=== PATIENT | male | born 1965 | race Caucasian/White ===

== ENCOUNTER 2018-01-15 05:56 | Emergency (ER) | payer OTHER ==
[~2018-01-15] VITALS: Ht 180.3 cm; Wt 89.8 kg
[2018-01-15] MEDS ORDERED: DYAZIDE 37.5-251 EA (06:12)
[2018-01-15] MEDS ORDERED: TYLENOL WITH C1 EACH PO (06:12)
[2018-01-15] MEDS ORDERED: DECADRON4 MG (06:13)
[2018-01-15] MEDS ORDERED: AUGMENTIN 875-1 EACH PO (06:44)
== END 2018-01-15 07:23 | disposition home or self-care (01) ==
LOC: ED 05:56
DX: J95.89 Other postprocedural complications and disorders of respiratory system, not elsewhere classified (principal); T81.82XA Emphysema (subcutaneous) resulting from a procedure, initial encounter; I10 Essential (primary) hypertension; Z88.1 Allergy status to other antibiotic agents; Z91.013 Allergy to seafood; Z91.018 Allergy to other foods; Z79.899 Other long term (current) drug therapy
CPT/HCPCS: 99283

== ENCOUNTER 2023-03-29 11:46 | Day surgery (SDC) | payer OTHER ==
[~2023-03-29] VITALS: Ht 175.3 cm; Wt 84.1 kg
[~2023-03-29 11:46] MED LIST: ADVIL PM CAPLE1 EACH PO; AUGMENTIN 875-1 EACH PO; DECADRON4 MG; DYAZIDE 37.5-251 EA; FLUOXETINE HCL40 MG PO; PROVENTIL HFA6.7 GM INH; TRAZODONE HCL50 MG PO; TYLENOL WITH C1 EACH PO
[2023-03-29 12:19] VITALS: BP 148/87
[2023-03-29] MEDS ORDERED: ADVAIR 250-501 EACH INH (12:22)
--- NOTE | 2023-03-29 13:38 | NUR ---
03/29/23 1338 Katya Ji 1335-PT TO PACU IN LL POSITION. EYES CLOSED. RESPONDS TO VERBAL AND TACTILE STIMULI. DENIES PAIN AND FALLS QUICKLY BACK TO SLEEP. DOES NOT OPEN EYES. BREATHING EASY AND UNLABORED. SPO2 >95% ON 2 LO2 VIA NC.
[2023-03-29 15:30] VITALS: BP 138/85
--- NOTE | 2023-03-31 09:47 | OR ---
[facility] [address], [place] [address] Signed DATE OF OPERATION: 03/29/2023 SURGEON: Chandler Luong MD PREOPERATIVE DIAGNOSIS: Colon screening. POSTOPERATIVE DIAGNOSES: 1. Mild sigmoid diverticulosis. 2. Small polyp rectosigmoid (excised). PROCEDURE: Total colonoscopy to cecum with cold morcellation polypectomy x1. ANESTHESIA: Intravenous sedation fentanyl 150 mcg and Versed 8 mg. INDICATION: This -mmaa-nir white man is patient of Dr. Harika Brewer. He is referred for screening colonoscopy. He has no family history of colon cancer and no symptoms of bleeding, diarrhea or constipation. He was admitted to undergo screening colonoscopy. He understands the risk of bleeding, infection, and perforation. FINDINGS: The prep was good. Complete colonoscopy was undertaken to the cecum without question. He had scattered diverticula of the sigmoid. There was one adenomatous appearing polyp of the rectosigmoid which was excised with cold morcellation technique. The remaining colon was normal. PROCEDURE IN DETAIL: The patient was brought to the endoscopy suite and placed in lateral decubitus position, given intravenous sedation to the point of slurred speech and nystagmus. Digital rectal examination was normal. An Olympus video colonoscope was passed in the rectum and manipulated throughout the colon noting diverticular change of the sigmoid. The scope was ultimately passed to the cecum. The ileocecal valve obscured the posterior wall of the cecum and on that basis was grasped with the biopsy forceps elevating and showing no sign of abnormality. The scope was then withdrawn from the cecum and examination showed no abnormality other than diverticular change of the sigmoid until the rectosigmoid where small adenomatous Electronically Signed By: CHANDLER LUONG MD 03/31/23 0947 PATIENT NAME: RAFIA SANCHEZ OPERATIVE REPORT DATE OF : 61 REPORT #: [id number] PHYSICIAN: CHANDLER LUONG MD PCP: HARIKA BREWER MD REPORT IS CONFIDENTIAL AND NOT TO BE RELEASED WITHOUT AUTHORIZATION [facility] [address], [place] [address] Signed appearing polyp was noted. This was excised with cold morcellation technique. Retroflexed view was undertaken which was normal. Otherwise, the scope was removed. The patient was taken to the recovery room in good condition. CONCLUDING DIAGNOSES: 1. Polyps x1. 2. Diverticular change of sigmoid. PLAN: Recommend repeat colonoscopy in three years, sooner if clinically indicated. A high-fiber diet is recommended as well. He will return to the ongoing care of Dr. Harika Brewer otherwise. MD HEENA Christian/ANGELICA /[id number] cc: Harika Brewer MD Copies: HARIKA BREWER DMD ~ Electronically Signed By: CHANDLER LUONG MD 03/31/23 0947 PATIENT NAME: RAFIA SANCHEZ OPERATIVE REPORT DATE OF : 61 REPORT #: [id number] PHYSICIAN: CHANDLER LUONG MD PCP: HARIKA BREWER MD REPORT IS CONFIDENTIAL AND NOT TO BE RELEASED WITHOUT AUTHORIZATION
--- NOTE | 2023-04-01 14:47 | PATH ---
[facility] [address] [place], [place] [address] Signed SPECIMEN(S): A RECTOSIGMOID POLYP SPECIMEN SOURCE: A. RECTOSIGMOID POLYP CLINICAL HISTORY: Hx: Initial screening colonoscopy. Post: Polyp x 1, diverticulosis. FINAL PATHOLOGIC DIAGNOSIS: Rectosigmoid colon polyp: - Tubular adenoma (one fragment). JVR:sm:C2NR MICROSCOPIC EXAMINATION: Histologic sections of all submitted blocks are examined by light microscopy. These findings, together with the gross examination, support the pathologic diagnosis. GROSS DESCRIPTION: The specimen, labeled and designated "Melvin, rectosigmoid colon polyp," is received in formalin and consists of one blank soft tissue fragment, 0.2 cm. Entirely submitted in (A1). JS (under the direct supervision of a pathologist) The Gross Description was prepared using a voice recognition system. The report was reviewed for accuracy; however, sound-alike word errors, addition and/or deletions may occur. If there is any question about this report, please contact Client Services. PERFORMING LABORATORY: Technical component was performed by [facility], [address] [place] [id number] (CLIA# [id number]). Professional interpretation was performed by [facility], [address] [place] [id number] (CLIA#: [id number]). Diagnostician: Corbin Orlando MD Pathologist Electronically Signed 04/01/2023 Copies: PATIENT NAME: RAFIA SANCHEZ PATHOLOGY DATE OF : 61 REPORT #: [id number] PHYSICIAN: JAK PATHOLOGY PCP: HARIKA BREWER MD REPORT IS CONFIDENTIAL AND NOT TO BE RELEASED WITHOUT AUTHORIZATION [address] [address] Signed ~ PATIENT NAME: RAFIA SANCHEZ PATHOLOGY DATE OF : 61 REPORT #: [id number] PHYSICIAN: JAK PATHOLOGY PCP: HARIKA BREWER MD REPORT IS CONFIDENTIAL AND NOT TO BE RELEASED WITHOUT AUTHORIZATION
== END 2023-03-29 15:45 | disposition home or self-care (01) ==
LOC: OPS 11:46 → DS 13:00 → OPS 13:00
PROVIDERS: ATTEND Surgery
PROC: 0DBN8ZZ Excision of Sigmoid Colon, Via Natural or Artificial Opening Endoscopic (ICD-10-PCS; principal; 2023-03-29 13:00)
DX: Z12.11 Encounter for screening for malignant neoplasm of colon (principal); J30.2 Other seasonal allergic rhinitis; F41.9 Anxiety disorder, unspecified; Z98.890 Other specified postprocedural states; Z88.5 Allergy status to narcotic agent; K57.30 Diverticulosis of large intestine without perforation or abscess without bleeding; D12.5 Benign neoplasm of sigmoid colon
CPT/HCPCS: 99153; G0500; J2250; J3010; J7121

== ENCOUNTER 2025-04-17 05:45 | Day surgery (SDC) | payer OTHER ==
[~2025-04-17] VITALS: Ht 180.3 cm; Wt 89.0 kg
[~2025-04-17 05:45] MED LIST changes: +ADVAIR 250-501 EACH INH; +LACTATED RINGER'S 1,000 ML IV SCH; +VENTOLIN HFA18 GM INH
[2025-04-17 06:13] VITALS: BP 153/108
[2025-04-17 06:56] VITALS: BP 131/103
[2025-04-17] MEDS ORDERED: IBLOOD GLUCOSE TEST STRIP 1 EA TEST VI PRN ×2 (07:00→09:00)
[2025-04-17] MEDS ORDERED: LIDOCAINE HCL 1% 5 ML SDV INJ ONE (07:00)
[2025-04-17] MEDS ORDERED: CEFAZOLIN SODIUM 2 GM/20 ML SYR IV SCH (07:00)
[2025-04-17] MEDS ORDERED: HEParin SOD (PORCINE) 5,000 UNIT/ML SDV SUB-Q SCH (07:00)
[2025-04-17] MEDS ORDERED: MIDAZOLAM HCL 2 MG/2 ML VIAL ONE (07:23)
[2025-04-17] MEDS ORDERED: DEXAMETHASONE SOD PHOS 4 MG/ML VIAL ONE (07:23)
[2025-04-17] MEDS ORDERED: fentaNYL citrate 100 MCG/2 ML VIAL ONE (07:23)
[2025-04-17] MEDS ORDERED: LIDOCAINE HCL 2% 5 ML SDV ONE (07:24)
[2025-04-17] MEDS ORDERED: Ropivacaine HCl 0.5% 30 ML VIAL ONE (07:25)
[2025-04-17] MEDS ORDERED: SEVOFLURANE 250 ML BTL INH ONE (08:39)
[2025-04-17] MEDS ORDERED: KETOROLAC TROMETHAMINE 30 MG/ML VIAL IV PRN (09:00)
[2025-04-17] MEDS ORDERED: NALOXONE HCL 0.4 MG SYR IV PRN ×2 (09:00→09:15)
[2025-04-17] MEDS ORDERED: fentaNYL citrate 50 MCG/ML SDV IV PRN (09:00)
--- NOTE | 2025-04-17 09:11 | NUR ---
04/17/25 0911 Marlen Hanson 0902-PATIENT ARRIVED TO PACU ON RA RR EVEN. PATIENT REACTIVE TO VERBAL STIMULI MUMBLES REMAINS VERY DROWSY. PATIENT DOES HAVE SLEEP APNEA. DRESSING TO RIGHT GROIN INTACT. SR HR 70'S 0908-PATIENT SLEEPING SNORING. O2 SAT DECREASED TO 82% AROUSES TO VERBAL STIMULI EYES CLOSED PLACED ON 2L NC 93% RR EVEN. NODS HEAD NO TO PAIN OR NAUSEA. DOZES BACK TO SLEEP.
[2025-04-17] MEDS ORDERED: OXYCODONE/APAP 7.5/325 TAB PO PRN (09:15)
[2025-04-17] MEDS ORDERED: ACETAMINOPHEN 500 MG TAB PO PRN (09:15)
[2025-04-17] MEDS ORDERED: IBUPROFEN 600 MG TAB PO PRN (09:15)
[2025-04-17] MEDS ORDERED: ACETAMINOPHEN500 MG PO (09:18)
[2025-04-17] MEDS ORDERED: OXYCODON-ACETA1 EAC2 PO (09:18)
[2025-04-17] MEDS ORDERED: IBUPROFEN600 MG PO (09:18)
[2025-04-17 09:40] VITALS: BP 129/80
--- NOTE | 2025-04-17 09:40 | NUR ---
PT ARRIVED BACK TO DS ON 2L/NC. PT AAOX3, ANSWERS QUESTIONS APPROPRIATELY, AND IS ABLE TO MAKE HIS NEEDS KNOWN. VS TAKEN. IV SITE ASSESSED. REPORT RECEIVED FROM [facility] AND SURGICAL DRSG VISUALIZED WITH [facility]. DRSG APPEARS CDI. PT DENIES PAIN OR NAUSEA WHEN ASKED. ICE WATER, PUDDING, AND CRACKERS PROVIDED. ALL QUESTIONS ANSWERED. BED IN LOW POSITION, WHEELS LOCKED, BILAT RAILS IN PLACE FOR SAFETY. CALL LIGHT WITHIN PT REACH.
--- NOTE | 2025-04-17 09:55 | NUR ---
PT TITRATED OFF OXYGEN TO RA. SATS REMAIN STABLE AT 92% OR GREATER ON RA.
--- NOTE | 2025-04-17 10:15 | NUR ---
PT UP TO RESTROOM WITH RN ASSIST. PT VOIDED APPROX 175 OF CLR, YELLOW URINE. PT ASSISTED BACK TO ROOM AND INTO BED. SURGICAL SITE OBSERVED POST-AMBULATION. SMALL AMT OF SHADOWING NOTED, APPROX THE SIZE OF A PENCIL ERASER. CALL LIGHT WITHIN PT REACH. FALL PREVENTIONS IN PLACE.
[2025-04-17 10:31] VITALS: BP 117/75
--- NOTE | 2025-04-17 10:34 | NUR ---
INTO PTS ROOM FOR ROUTINE REASSESSMENT. VS TAKEN. IV SITE ASSESSED. PT CONT TO DENY PAIN OR NAUSEA WHEN ASKED. SURGICAL SITE REMAINS WITH SMALL AMT OF SHOWOWING, NO INCREASED DRAINAGE NOTED. PT EDUCATED ON USE OF HAND TO SUPPORT INCISION WITH POSITION CHANGES AND HAS DEMONSTRATED UNDERSTANDING. PT HAS TAKEN FOOD AND FLUIDS PO WITHOUT ISSUES NOTED/REPORTED. ALL QUESTIONS ANSWERED. FALL PREVENTIONS IN PLACE. CALL LIGHT WITHIN PT REACH.
--- NOTE | 2025-04-17 11:05 | NUR ---
1050-INTO PTS ROOM FOR DISCHARGE EDUCATION. PT PROVIDED WITH VERBAL AND WRITTEN DC EDUCATION. PT VERBALIZED UNDERSTANDING AND ALL QUESTIONS WERE ANSWERED. PT ALSO GIVEN POST-OP APPT FOR 05/22/25 AT 1610. 1100-IV REMOVED. TIP APPEARS INTACT. PRESSURE DRSG APPLIED WITH GAUZE AND COBAN. 1105-PT DRESSING FOR DISCHARGE. CALL LIGHT AND PERSONAL BELONGINGS WITHIN PT REACH.
--- NOTE | 2025-04-17 11:10 | NUR ---
PT DISCHARGED FROM DS VIA WC TO PASSENGER SIDE OF FRIEND ([employer]) CAR. ALL PERSONAL BELONGINGS TAKEN WITH PT.
--- NOTE | 2025-04-18 13:47 | OR ---
[facility] [address] [place], [place] [address] Signed DATE OF OPERATION: 04/17/2025 SURGEON: Chandler Luong MD PREOPERATIVE DIAGNOSIS: Right inguinal hernia, reducible. POSTOPERATIVE DIAGNOSIS: Right direct inguinal hernia. PROCEDURE: Repair of right direct inguinal hernia with implantation of Prolene mesh underlay technique. ANESTHESIA: General LMA and preoperative ilioinguinal nerve block and local 10 mL of 0.25% Marcaine with epinephrine. INDICATION: This 60-year-old white man is patient of Dr. Harika Brewer and identified as having a right inguinal hernia. He has had right lower abdominal pain radiating to his back, not generally painful, but hernia has been identified and is not incarcerated. He last underwent colonoscopy in 2022 which was negative. He is admitted at this time to undergo right inguinal hernia. He understands the risk of bleeding, infection, recurrence, chronic pain, and other unforeseen complications. Understanding this, he wished to proceed. FINDINGS: A direct defect was noted. There was no sign of indirect hernia. The cord did have fat within it, not related to hernia in any way and was not excised. Repair consisted of division of the attenuated fibers of the fascia of transversalis with implantation of Prolene mesh in an underlay technique. Cord structures were preserved. An ilioinguinal nerve was identified and preserved. DESCRIPTION OF PROCEDURE: The patient was brought to the operating room, given a general LMA type anesthetic. Preoperative antibiotic Ancef was given. Sequential compression device stockings used and heparin subcutaneously administered. The abdomen was clipped and prepared with chlorhexidine solution and draped sterilely. An incision was made cephalad to the pubic tubercle, but inferior to the lower abdominal wall tattoo not interrupting the tattoo at Electronically Signed By: CHANDLER LUONG MD 04/18/25 1347 PATIENT NAME: RAFIA SANCHEZ OPERATIVE REPORT DATE OF : 61 REPORT #: [id number] PHYSICIAN: CHANDLER LUONG MD PCP: HARIKA BREWER MD REPORT IS CONFIDENTIAL AND NOT TO BE RELEASED WITHOUT AUTHORIZATION [facility] [address] [place], [place] [address] Signed all. Dissection was carried through the subcutaneous tissue. Superficial epigastric vessels were individually divided and ligated with 2-0 Vicryl ties. External oblique was incised along its fibers revealing the underlying cord. An attenuated and small ilioinguinal nerve was dissected free from the cremasteric muscle fibers and reflected medially around the external oblique. The cord was mobilized from the floor with blunt electrocautery technique and encircled with a Edgar drain. Inspection of the floor showed a very attenuated tissue and a direct hernia. Dissection was begun medially around the cord structures, incising cremasteric muscle fibers, but not identifying an indirect sac. There was fatty tissue associated with the cord, but did not represent a hernia and there was no discrete lipoma. It was left in situ. Allis clamps were applied to the tendon of the transversus abdominis and the attenuated fibers of the fascia of the transversalis were incised with electrocautery. The properitoneal fat was bluntly . A segment of Prolene ProGrip mesh was secured in an underlay technique with interrupted 2-0 Prolene sutures. A defect was cut in the graft to accommodate the cord. The tails of the graft were secured laterally taking special care to avoid incorporation of the ilioinguinal nerve. Irrigation was undertaken. 10 mL of 0.25% Marcaine with epinephrine injected locally. The cord was replaced in the canal as was the ilioinguinal nerve. The external oblique reapproximated with running 2-0 Vicryl. Silvana layer was reapproximated with interrupted 2-0 Vicryl and skin closed with running subcuticular 3-0 Vicryl. Steri-Strips were applied as was an Acticoat dressing. He was extubated and transferred to the recovery room in good condition having suffered no complications. Sponge, needle, and instrument counts were reported as correct x3. MD HEENA Christian/MODL /[id number] cc: Harika Brewer MD Electronically Signed By: CHANDLER LUONG MD 04/18/25 1347 PATIENT NAME: RAFIA SANCHEZ OPERATIVE REPORT DATE OF : 61 REPORT #: [id number] PHYSICIAN: CHANDLER LUONG MD PCP: HARIKA BREWER MD REPORT IS CONFIDENTIAL AND NOT TO BE RELEASED WITHOUT AUTHORIZATION [address] [address] Signed Copies: HARIKA BREWER DMD ~ Electronically Signed By: CHANDLER LUONG MD 04/18/25 1347 PATIENT NAME: RAFIA SANCHEZ OPERATIVE REPORT DATE OF : 61 REPORT #: [id number] PHYSICIAN: CHANDLER LUONG MD PCP: HARIKA BREWER MD REPORT IS CONFIDENTIAL AND NOT TO BE RELEASED WITHOUT AUTHORIZATION
== END 2025-04-17 11:10 | disposition home or self-care (01) ==
LOC: DS 05:45
PROVIDERS: ATTEND Surgery
PROC: 0YU50JZ Supplement Right Inguinal Region with Synthetic Substitute, Open Approach (ICD-10-PCS; principal; 2025-04-17 07:30)
DX: K40.90 Unilateral inguinal hernia, without obstruction or gangrene, not specified as recurrent (principal); G89.18 Other acute postprocedural pain; K21.9 Gastro-esophageal reflux disease without esophagitis; I10 Essential (primary) hypertension; J45.909 Unspecified asthma, uncomplicated; Z79.899 Other long term (current) drug therapy; Z88.1 Allergy status to other antibiotic agents; Z88.6 Allergy status to analgesic agent; Z88.8 Allergy status to other drugs, medicaments and biological substances; Z91.013 Allergy to seafood
CPT/HCPCS: 00840; 64425; 76942; C1781; J0690; J1100; J1644; J2003; J2250; J2405; J2704; J2795; J3010; J7121